=== PATIENT | male | born 1940 | race Caucasian/White ===

== ENCOUNTER 2017-01-26 08:28 | Emergency (ER) | payer OTHER, MEDICARE ==
[2017-01-26 08:35] VITALS: BP 153/94; PULSE 79; TEMP 98.1; BMI 28.4
--- NOTE | 2017-01-26 09:07 | PDOC ---
History of Present Illness - General Chief Complaint: Injury Stated Complaint: FALL Time Seen by Provider: 01/26/17 08:45 - History of Present Illness Initial Comments: 01/26/17 09:00 Chief complaint: Left hand injury History of present illness: This morning the patient tripped and fell while exiting a [employer] train, falling forward onto his outstretched arms. He sustained an injury to his left palm which consists of a laceration and bleeding. Review of systems: He denies pain or injury to the head neck chest abdomen spine or other extremities. He denies distal numbness tingling or limited motion of the hand or digits on the affected side. He denies visual or focal neurologic symptoms, dizziness, lightheadedness, unsteadiness of gait. He denies chest pain, shortness of breath, abdominal pain, nausea, vomiting, diarrhea, diaphoresis, urinary tract symptoms. Past medical history: Status post ablation for atrial fibrillation 2 years ago, with no subsequent recurrence, has been maintained in sinus rhythm, but continues to take warfarin as a "back up". He keeps careful track of his INR is , which are in the 2-3 range. He also takes losartan for high blood pressure and simvastatin for elevated cholesterol. No history of PR or known coronary disease. Social/family history reviewed and noncontributory Physical exam: Alert and oriented 3, well-developed well-nourished, no acute distress, cheerful and cooperative Afebrile, vital signs normal except for mildly elevated blood pressure of 153/94 Head atraumatic. No sign of abrasion laceration contusion and ecchymosis or hematoma PERRLA 4 mm, fundi benign with sharp disc margins and good central venous pulsations, ENT clear Neck without tenderness or deformity, good range of motion without pain Chest clear. Chest wall or rib cage tenderness or deformity. Full breath sounds throughout bilaterally CV S1 and S2 normal without murmur rub or gallop pulses full and symmetric no JVD or edema no bruits 80 and regular Abdomen soft nontender without mass or organomegaly No pelvis or spine deformity or tenderness No visible or palpable trauma to the extremities except for the left hand, where there is a deep flap-type laceration over the thenar eminence and the palm. There is no tenderness or deformity of the bones of the hand. There is good range of motion of all 5 digits. Including the thumb. There is no distal sensory or motor deficit present. Joint function is complete and extension and flexion against resistance. Capillary refill is intact. The flap was elevated and the laceration was visualized. It appears to be limited to the soft tissues without any deep penetration Impression: Hand laceration Plan: Thorough scrub and irrigation, suture repair, wound care instructions and follow-up. Past History - Past Medical History Allergies/Adverse Reactions: Allergies Allergy/AdvReac Type Severity Reaction Status Date / Time esomeprazole magnesium Allergy Verified 01/26/17 08:29 [From Nexium] Home Medications: Ambulatory Orders Losartan Potassium 50 mg PO BID 07/31/12 Warfarin Sodium [Coumadin] 5 mg PO DAILY 08/10/14 Simvastatin [Zocor] 10 mg PO HS 01/26/17 Cancer: Yes (PROSTATE) Cardiac Disorders: Yes (AFIB,) HTN: Yes Hypercholesterolemia: Yes - Surgical History Cardiac Surgery: Yes (ABLASION) - Psycho/Social/Smoking Cessation Hx Anxiety: No Suicidal Ideation: No Smoking Status: No Smoking History: Never smoked Years of Tobacco Use: 0 Number of Cigarettes Smoked Daily: 0 Hx Alcohol Use: Yes Drug/Substance Use Hx: No Substance Use Type: Alcohol *Physical Exam - Vital Signs Last Vital Signs Temp Pulse Resp BP Pulse Ox 98.1 F 79 16 153/94 96 01/26/17 08:29 01/26/17 08:29 01/26/17 08:29 01/26/17 08:29 01/26/17 08:29 Medical Decision Making - Medical Decision Making 01/26/17 10:06 Procedure note: Repair of laceration Flap-like laceration approximately 2 cm in length was prepped with Betadine. Local anesthesia with 1% lidocaine, with good result Wound scrubbed and thoroughly irrigated with normal saline, explored. Found to be superficial. No deep penetration or deep structures involved Hemostasis was obtained with gentle pressure, and wound edges were loosely approximated with 4-0 nylon interrupted sutures. Avoiding the skin edges of the flap. Bacitracin was applied and a bulky dressing was installed. Patient tolerated the procedure well. Tetanus was administered and he was discharged to follow-up fully ambulatory, in no pain or other distress in the company of his . *DC/Admit/Observation/Transfer Diagnosis at time of Disposition: Laceration of hand Qualifiers: Encounter type: initial encounter Laterality: left Qualified Code(s): S61.412A - Laceration without foreign body of left hand, initial encounter - Discharge Dispostion Disposition: HOME Condition at time of disposition: Improved Admit: No - Referrals Referrals: Elliott Tovar [Primary Care Provider] - 2 Days - Patient Instructions Printed Discharge Instructions: DI for Laceration Repair, How to Care for a Laceration After Repair Additional Instructions: Keep clean and dry until sutures are removed. Rest and elevate 24-48 hours to minimize swelling in chance of infection. Dressing changes and wound care as described. Recheck immediately if sign of infection. Otherwise suture removal in 10-14 days.
[2017-01-26] MEDS ORDERED: DIPHTH,PERTUSS(ACELL),TET 0.5 ML DISP.SYRIN IM ONE (09:51)
== END 2017-01-26 10:33 | disposition home or self-care (01) ==
LOC: FER 08:28
PROC: 0HQGXZZ Repair Left Hand Skin, External Approach (ICD-10-PCS; principal; 2017-01-26)
PROC: 3E0234Z Introduction of Serum, Toxoid and Vaccine into Muscle, Percutaneous Approach (ICD-10-PCS; 2017-01-26)
DX: S61.412A Laceration without foreign body of left hand, initial encounter (principal); W18.39XA Other fall on same level, initial encounter; Y93.89 Activity, other specified; Y92.522 Railway station as the place of occurrence of the external cause; I48.91 Unspecified atrial fibrillation; I10 Essential (primary) hypertension; E78.00 Pure hypercholesterolemia, unspecified; Z79.01 Long term (current) use of anticoagulants; Z85.46 Personal history of malignant neoplasm of prostate
CPT/HCPCS: 90715; 99282-25

== ENCOUNTER 2020-01-17 12:00 | Inpatient (IN) | payer OTHER, MEDICARE ==
[~2020-01-17 12:00] MED LIST: ALPRAZolam 0.25 MG TABLET PO PRN
--- NOTE | 2020-01-17 12:45 | PDOC ---
History of Present Illness - General Chief Complaint: Injury Stated Complaint: HIP PAIN Time Seen by Provider: 01/17/20 12:42 History Source: Patient, Family Exam Limitations: No Limitations - History of Present Illness Initial Comments: 79 year old male with PMH atrial fibrillation on Coumadin s/p ablation, RA, HTN , HLD, anxiety presented to ED after a fall today. Pt was recently discharged from [facility] last Monday, admitted for anxiety, had his Zoloft in the morning increased from 100 mg to 200 mg. Pt reported this AM while at home, he attempted to stand up from the stable, had the chair slip out from beneath him, and felt to the ground on the right side of his bottom. He denied head injury, neck pain, back pain, prodromal symptoms, chest pain, shortness of breath, palpitations, lightheadedness, LOC, vomiting. He reported his only complaint is mild right hip pain. He reported after the fall he was ambulatory, going up and down stairs without difficulty. He reported that he went to his outpatient psychiatrist this morning, who advised coming to ED for XR of pelvis/hip. He reported in the parking lot of [employer] he then fell towards the car while he was trying to get out, lightly falling down again on his bottom. He denied head injury, neck pain, back pain, prodromal symptoms, chest pain, shortness of breath, palpitations, lightheadedness, LOC, vomiting. Family at bedside reported they believe the patient's anxiety and new increased dose of Zoloft is the cause of his falling today. They reported he gets unsteady on his feet when he gets nervous, and he awoke this AM with increased anxiety. ROS General: denied fever, chills, generalized weakness. HEENT: denied sore throat, rhinorrhea, ear pain. Neck: denied neck pain. Cardiovascular: denied chest pain, palpitations, syncope, diaphoresis. Respiratory: denied shortness of breath, cough, sputum production, hemoptysis. Gastrointestinal: denied abdominal pain, nausea, vomiting, diarrhea, constipation, blood in stool. Genitourinary: denied dysuria, increased urinary frequency, hematuria, urinary incontinence, flank pain. Back: denied back pain. Musculoskeletal: admitted to right hip pain. denied joint swelling. Neurological: denied headache, dizziness, numbness, tingling, weakness. Integumentary: denied rash, laceration, abrasion. Hematologic/Lymphatic: denied bruising or bleeding Constitutional: Well-nourished, Well-developed, appearing stated age. Airway: intact Breathing: bilateral breath sounds Circulation: 2+ carotid pulse B/L HEENT: head is normocephalic, atraumatic. No facial bones tenderness to palpation. No gonzales sign. No raccoon eyes. EOMI. PERRLA. Neck: supple. Full ROM. no midline c-spine tenderness to palpation. No step offs. Cardiovascular: regular heart rhythm. no murmurs. no pericardial friction rub. Chest wall: No tenderness to palpation of anterior chest wall. No deformity to anterior chest wall. Respiratory: clear to auscultation bilaterally. no crackles, rhonchi or wheezing. no stridor. Gastrointestinal: soft, nontender. normal bowel sounds. no rebound, guarding, masses. No ecchymoses. Back: no midline T-spine or L-spine tenderness to palpation. No step offs. no bruising to back. Pelvis: lower extremities equal in length without external rotation. No hip tenderness to palpation. Extremities: peripheral pulses intact. no lower extremity edema. Neurological: CN 2-12 grossly intact. moves all four extremities. Psych: awake, alert, oriented x3. follows commands. answers questions appropriately. Past History - Past Medical History Allergies/Adverse Reactions: Allergies Allergy/AdvReac Type Severity Reaction Status Date / Time esomeprazole magnesium Allergy Unknown Verified 01/17/20 12:41 [From Nexium] Home Medications: Ambulatory Orders Warfarin Sodium [Coumadin] 5 mg PO HS 08/10/14 Cholecalciferol (Vitamin D3) [Vitamin D3 -] 1,000 unit PO DAILY 01/17/20 Docusate Sodium [Docusate 100 mg] 100 mg PO BID 01/17/20 Hydroxychloroquine Sulfate [Plaquenil] 200 mg PO BID 01/17/20 Losartan Potassium [Cozaar] 25 mg PO BID 01/17/20 Mirtazapine [Remeron -] 15 mg PO HS 01/17/20 Mv-Mins/Folic/Lycopene/Ginkgo [One Daily Men's 50+ Tablet] 1 each PO DAILY 01/17 Sertraline HCl [Zoloft] 200 mg PO DAILY 01/17/20 - Immunization History TDAP Vaccination: Yes (01/26/2017) - Psycho Social/Smoking Cessation Hx Smoking Status: No Smoking History: Never smoked Years of Tobacco Use: 0 Number of Cigarettes Smoked Daily: 0 Hx Alcohol Use: No Drug/Substance Use Hx: No Substance Use Type: None *Physical Exam - Vital Signs Last Vital Signs Temp Pulse Resp BP Pulse Ox 98.1 F 70 18 140/70 96 01/17/20 12:10 01/17/20 12:10 01/17/20 12:10 01/17/20 12:10 01/17/20 12:10 ED Treatment Course - LABORATORY CBC & Chemistry Diagram: 01/17/20 13:30 01/17/20 13:30 - RADIOLOGY Radiology Studies Ordered: Category Date Time Status CHEST X-RAY PORTABLE* [RAD] Stat Radiology 01/17/20 12:21 Ordered HIP & PELVIS-RIGHT [RAD] Urgent Radiology 01/17/20 12:16 Ordered Medical Decision Making - Medical Decision Making 79 year old male with above PMH presented to ED for right hip pain after two mechanical falls today. Initial Vital Signs Temp Pulse Resp BP Pulse Ox 98.1 F 70 18 140/70 96 01/17/20 12:10 01/17/20 12:10 01/17/20 12:10 01/17/20 12:10 01/17/20 12:10 Afebrile. No tachycardia. No tachypnea. Mild hypertension. No hypoxia on room air. Labs ordered: UA Imaging ordered: CXR, right hip XR, pelvis XR Medications ordered: none Pt refused pain medication EKG performed at 1307: rate 78, regular rhythm, normal axis, normal intervals, no acute ST changes. 01/17/20 13:10 CXR report: Name: [facility] S[facility]ENT DEPARTMENT OF RADIOLOGY Phys: Nadege Hameed RESIDENT : 1940 Age: 79 Sex: M [facility] Acct: [id number] Loc: [address] Exam Date: 01/17/20 Status: REG [place] [id number] Unit Number: [id number] EXAM #: TYPE/EXAM: RESULT: [id number] RAD/CHEST X-RAY PORTABLE* Chest: Fall. Pain. A single view of the chest reveals grossly intact bones and soft tissues, scoliosis, weak inspiration, prominent heart, unfolded aorta and normal noemi. There is no sign of infiltrate or failure. A pneumothorax, pleural fluid or atelectasis is not seen. Correlation recommended. If symptoms persist, further imaging may be of help. Reported By: Devante Rodney MD 01/17/20 1253 Right hip/pelvis XR report: Name: [facility]AH SARGENT DEPARTMENT OF RADIOLOGY Phys: Nadege Hameed RESIDENT : 1940 Age: 79 Sex: M [facility] Acct: [id number] Loc: [address] Exam Date: 01/17/20 Status : [place] [address] Unit Number: [id number] EXAM#: TYPE/EXAM: RESULT: [id number] RAD/HIP PELVIS-RIGHT ADDENDUM ADDENDUM #1 There are right gonadal clips. * ORIGINAL REPORT Pelvis and right hip: Fall. Right hip pain. 2 views of the pelvis and 2 views of the right hip for a total of 4 images reveal what appears to be an impaction fracture of the right femoral neck. The other bones are intact. There is evidence of extensive abdominal surgery. There is retained stool. There are degenerative changes. Correlation recommended. Impression: Findings suggestive of impaction fracture right hip. Correlation recommended. CT is suggested. Reported By: Devante Rodney MD 01/17/20 1256 Pelvis and right hip: Fall. Right hip pain. 2 views of the pelvis and 2 views of the right hip for a total of 4 images reveal what appears to be an impaction fracture of the right femoral neck. The other bones are intact. There is evidence of extensive abdominal surgery. There is retained stool. There are degenerative changes. Correlation recommended. Impression: Findings suggestive of impaction fracture right hip. Correlation recommended. CT is suggested. Reported By: Devante Rodney MD 01/17/20 1255 Pt has acute right femoral impacted fracture. Pt and family made aware, Dr. Francisco Javier bell. Labs ordered: CBC, CMP, PT/PTT/INR, T&S Last ate 1/2 muffin at 1200 today Prior ate croissant and pound cake around 0900 today 01/17/20 13:[address] Mcintyre's PA. Pt to be NPO after midnight, will follow INR. 01/17/20 14:28 Laboratory Last Values WBC 11.0 K/mm3 (4.0-10.8) H 01/17/20 13:30 RBC 3.94 M/mm3 (4.00-5.60) L 01/17/20 13:30 Hgb 12.4 GM/dl (11.7-16.9) 01/17/20 13:30 Hct 37.1 % (35.4-49) 01/17/20 13:30 MCV 94.1 fl (80-96) 01/17/20 13:30 MCH 31.5 pg (25.7-33.7) 01/17/20 13:30 MCHC 33.5 g/dl (32.0-35.9) 01/17/20 13:30 RDW 13.9 % (11.9-15.9) 01/17/20 13:30 Plt Count 164 K/MM3 (134-434) 01/17/20 13:30 MPV 7.3 fl (7.5-11.1) L 01/17/20 13:30 Absolute Neuts (auto) 10.1 K/mm3 01/17/20 13:30 Neutrophils % No Result Required. 01/17/20 13:30 Neutrophils % (Manual) 90.0 % (42.8-82.8) H 01/17/20 13:30 Lymphocytes % No Result Required. 01/17/20 13:30 Lymphocytes % (Manual) 2.0 % (8-40) L 01/17/20 13:30 Monocytes % (Manual) 8 % (3.8-10.2) 01/17/20 13:30 Platelet Estimate Adequate 01/17/20 13:30 PT with INR 13.2 SEC (10.2-13.0) H 01/17/20 13:30 INR 1.18 (0.82-1.09) 01/17/20 13:30 PTT (Actin FS) 29.5 SECONDS (25.2-36.5) 01/17/20 13:30 Sodium 135 mmol/L (136-145) L 01/17/20 13:30 Potassium 4.5 mmol/L (3.5-5.1) 01/17/20 13:30 Chloride 108 mmol/L (98-107) H 01/17/20 13:30 Carbon Dioxide 23 mmol/L (21-32) 01/17/20 13:30 Anion Gap 4 MMOL/L (8-16) L 01/17/20 13:30 BUN 31.0 mg/dl (7-18) H 01/17/20 13:30 Creatinine 1.5 mg/dl (0.55-1.3) H 01/17/20 13:30 Est GFR (CKD-EPI)AfAm 50.24 01/17/20 13:30 Est GFR (CKD-EPI)NonAf 43.35 01/17/20 13:30 Random Glucose 158 mg/dl (74-106) H 01/17/20 13:30 Calcium 8.4 mg/dl (8.5-10) L 01/17/20 13:30 Total Bilirubin 0.5 mg/dl (0.2-1) 01/17/20 13:30 AST 44 U/L (15-37) H 01/17/20 13:30 ALT 65 U/L (13-61) H 01/17/20 13:30 Alkaline Phosphatase 82 U/L (45-117) 01/17/20 13:30 Total Protein 6.3 g/dl (6.4-8.2) L 01/17/20 13:30 Albumin 3.6 g/dl (3.4-5.0) 01/17/20 13:30 01/17/20 14:44 Spoke with Ortho PA, pt to be evaluated by ortho tomorrow. NPO after midnight. 01/17/20 15:[address] Rivas Discharge - Discharge Information Problems reviewed: Yes Clinical Impression/Diagnosis: Femoral neck fracture Condition: Guarded - Admission Yes - Follow up/Referral Referrals: Elliott Tovar [Primary Care Provider] - - Patient Discharge Instructions - Post Discharge Activity
--- NOTE | 2020-01-17 12:47 | PDOC ---
Attending Attestation - Resident Resident Name: Nadege Hameed - ED Attending Attestation I have performed the following: I have examined & evaluated the patient, The case was reviewed & discussed with the resident, I agree w/resident's findings & plan, Exceptions are as noted - HPI HPI: 79 yo M history afib on coumadin, RA, HTN, HL, anxiety presents s/p falls x2. He states he had a mechanical fall this morning while attempting to stand up. Denies any preceding symptoms. He came to the ED at the behest of his psychiatrist. On arrival to the ED, he slid as he was exiting the car, landing on his buttocks. He c/o R buttock pain. Denies weakness, numbness. No LOC, no BLANTON , no N/V. Pain localizes to R buttock/pelvis, worse with ROM of the R hip. - Physicial Exam PE: GENERAL: Awake, alert, and fully oriented, in no acute distress. Mildly anxious HEAD: No signs of trauma EYES: PERRLA, EOMI, sclera anicteric, conjunctiva clear ENT: Auricles normal inspection, hearing grossly normal, nares patent, oropharynx clear without exudates. Moist mucosa NECK: Normal ROM, supple, no lymphadenopathy, JVD, or masses LUNGS: Breath sounds equal, clear to auscultation bilaterally. No wheezes, and no crackles HEART: Regular rate and rhythm, normal S1 and S2, no murmurs, rubs or gallops ABDOMEN: Soft, nontender, normoactive bowel sounds. No guarding, no rebound. No masses EXTREMITIES: R hip with limited ROM secondary to pain. +Tenderness to the area of the R inferior pubic ramus. Distal pulses intact. Remainder of extremities with normal range of motion, no edema. No clubbing or cyanosis. No cords, erythema, or tenderness NEUROLOGICAL: Cranial nerves II through XII grossly intact. Normal speech. Motor and sensation intact. Gait not tested due to nature of complaint SKIN: Warm, dry, normal turgor, no rashes or lesions noted. - Medical Decision Making Pt with R hip/pelvis pain secondary to fall. Found to have R femoral neck fx. Will obtain EKG, labs, UA. Admit.
[2020-01-17 14:00] LABS: HEMATOCRIT 37.1 % (35.4-49); HEMOGLOBIN 12.4 GM/dl (11.7-16.9); MCH 31.5 pg (25.7-33.7); MCHC 33.5 g/dl (32.0-35.9); MEAN CELL VOLUME 94.1 fl (80-96); MEAN PLT VOLUME 7.3 fl (7.5-11.1); PLATELET COUNT 164 K/MM3 (134-434); RBC 3.94 M/mm3 (4.00-5.60); RDW 13.9 % (11.9-15.9)
[2020-01-17 14:05] LABS: ALBUMIN 3.6 g/dl (3.4-5.0); BILIRUBIN,TOTAL 0.5 mg/dl (0.2-1); CALCIUM 8.4 mg/dl (8.5-10); CREATININE 1.5 mg/dl (0.55-1.3); POTASSIUM 4.5 mmol/L (3.5-5.1); TOT PROT 6.3 g/dl (6.4-8.2)
[2020-01-17] MEDS ORDERED: SODIUM CHLORIDE 500 ML IV STA (14:08)
[2020-01-17 14:15] LABS: INR 1.18 (0.82-1.09); PROTHROMBIN TIME (PATIENT) 13.2 SEC (10.2-13.0)
[2020-01-17 14:17] LABS: PLATELET ESTIMATE ADEQUATE
--- NOTE | 2020-01-17 16:26 | CON.CARD ---
Cardiology Consult (text) - Consultation Consultation Note: cc: fall hpi: 79 m hx afib (s/p ablation approx 6 yrs ago), htn, hld, anxiety here s/p fall. Pt had mechanical fall at home (chair slipped and he fell), no prodrome sxs, no cp sob palps dizzy loc pnd orthopnea le edema. After fall had right hip pain. Came to er and found to have hip fx. pmh: per hpi psh: afib ablation social: no tob fam: no premature cad ros: per hpi; all others nl meds: Home Medications Medication Instructions Recorded Warfarin Sodium [Coumadin] 5 mg PO HS 08/10/14 Cholecalciferol (Vitamin D3) 1,000 unit PO DAILY 01/17/20 [Vitamin D3 -] Docusate Sodium [Docusate 100 mg] 100 mg PO BID 01/17/20 Hydroxychloroquine Sulfate 200 mg PO BID 01/17/20 [Plaquenil] Losartan Potassium [Cozaar] 25 mg PO BID 01/17/20 Mirtazapine [Remeron -] 15 mg PO HS 01/17/20 Mv-Mins/Folic/Lycopene/Ginkgo [One 1 each PO DAILY 01/17/20 Daily Men's 50+ Tablet] Sertraline HCl [Zoloft] 200 mg PO DAILY 01/17/20 pe: Vital Signs Period Temp Pulse Resp BP Sys/Saunders Pulse Ox Last 24 Hr 98.1 F-99.9 F 70-74 16-18 119-140/70-74 95-96 nad no jvd rrr s1s2 no mrg cta bl nl eff aao3 no le e/c/c abd nt nd pos bs no jaundice diaphoresis pos dp pt no carotid bruits Laboratory Last Values WBC 11.0 K/mm3 (4.0-10.8) H 01/17/20 13:30 RBC 3.94 M/mm3 (4.00-5.60) L 01/17/20 13:30 Hgb 12.4 GM/dl (11.7-16.9) 01/17/20 13:30 Hct 37.1 % (35.4-49) 01/17/20 13:30 MCV 94.1 fl (80-96) 01/17/20 13:30 MCH 31.5 pg (25.7-33.7) 01/17/20 13:30 MCHC 33.5 g/dl (32.0-35.9) 01/17/20 13:30 RDW 13.9 % (11.9-15.9) 01/17/20 13:30 Plt Count 164 K/MM3 (134-434) 01/17/20 13:30 MPV 7.3 fl (7.5-11.1) L 01/17/20 13:30 Absolute Neuts (auto) 10.1 K/mm3 01/17/20 13:30 Neutrophils % No Result Required. 01/17/20 13:30 Neutrophils % (Manual) 90.0 % (42.8-82.8) H 01/17/20 13:30 Lymphocytes % No Result Required. 01/17/20 13:30 Lymphocytes % (Manual) 2.0 % (8-40) L 01/17/20 13:30 Monocytes % (Manual) 8 % (3.8-10.2) 01/17/20 13:30 Platelet Estimate Adequate 01/17/20 13:30 PT with INR 13.2 SEC (10.2-13.0) H 01/17/20 13:30 INR 1.18 (0.82-1.09) 01/17/20 13:30 PTT (Actin FS) 29.5 SECONDS (25.2-36.5) 01/17/20 13:30 Sodium 135 mmol/L (136-145) L 01/17/20 13:30 Potassium 4.5 mmol/L (3.5-5.1) 01/17/20 13:30 Chloride 108 mmol/L (98-107) H 01/17/20 13:30 Carbon Dioxide 23 mmol/L (21-32) 01/17/20 13:30 Anion Gap 4 MMOL/L (8-16) L 01/17/20 13:30 BUN 31.0 mg/dl (7-18) H 01/17/20 13:30 Creatinine 1.5 mg/dl (0.55-1.3) H 01/17/20 13:30 Est GFR (CKD-EPI)AfAm 50.24 01/17/20 13:30 Est GFR (CKD-EPI)NonAf 43.35 01/17/20 13:30 Random Glucose 158 mg/dl (74-106) H 01/17/20 13:30 Calcium 8.4 mg/dl (8.5-10) L 01/17/20 13:30 Total Bilirubin 0.5 mg/dl (0.2-1) 01/17/20 13:30 AST 44 U/L (15-37) H 01/17/20 13:30 ALT 65 U/L (13-61) H 01/17/20 13:30 Alkaline Phosphatase 82 U/L (45-117) 01/17/20 13:30 Total Protein 6.3 g/dl (6.4-8.2) L 01/17/20 13:30 Albumin 3.6 g/dl (3.4-5.0) 01/17/20 13:30 Blood Type O POSITIVE 01/17/20 13:40 ecg: sr nl intervals no ischemic changes cxr: clear lungs a/p: 79 m hx afib (s/p ablation), htn, hld, here s/p fall. fall, hip fracture: -mechanical fall, no suggestion of cardiac etiology -no cardiac contraindications (low-intermediate risk) to hip surgery afib s/p ablation: -in sr here -on coumadin at home, INR subtherapeutic here. would star hep gtt or lovenox if no immediate plans for hip surgery htn: -cont home arb hld: -cont home statin
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
[2020-01-17] MEDS ORDERED: SODIUM CHLORIDE 0.9% 1000 ML INFUS.BAG IV ONE (17:39)
[2020-01-17] MEDS ORDERED: ACETAMINOPHEN 325 MG TABLET (FP) PO PRN (17:44)
[2020-01-17] MEDS ORDERED: SODIUM CHLORIDE 1,000 ML IV SCH (17:45)
[2020-01-17] MEDS ORDERED: BACITRACIN 15 GM TUBE TOPICAL OINTMENT TP SCH (17:45)
[2020-01-17] MEDS ORDERED: SILVER SULFADIAZINE 1% TOP CREAM 50 GM JAR TP SCH (17:45)
[2020-01-17] MEDS ORDERED: ALPRAZolam 1 MG TABLET PO PRN (18:01)
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
[2020-01-17 18:23] VITALS: BMI 25.5
[2020-01-17] MEDS ORDERED: ALPRAZolam 0.25 MG TABLET PO PRN (18:32)
[2020-01-17] MEDS: HEPARIN NA (PORCINE) 5,000 UNITS/ML 1ML VIAL SQ SCH (21:35)
[2020-01-17] MEDS ORDERED: SENNOSIDES 8.6MG TABLET (FP) PO SCH (22:00)
[2020-01-17] MEDS ORDERED: DOCUSATE SODIUM 100 MG CAPSULE (FP) PO SCH (22:00)
[2020-01-17] MEDS ORDERED: MIRTAZAPINE 15 MG TABLET (FP) PO SCH (22:00)
[2020-01-17] MEDS ORDERED: HYDROXYCHLOROQUINE SO4 200 MG TABLET (FP) PO SCH (22:00)
[2020-01-17 22:26] LABS: COCAINE, UR NEGATIVE ng/ml (CUTOFF=300); METHADONE, UR NEGATIVE ng/ml (CUTOFF=300); OPIATES, URI NEGATIVE ng/ml (CUTOFF=300); PHENCYCLIDINE,URINE NEGATIVE ng/ml (CUTOFF=25); URINE AMPHETAMINES NEGATIVE ng/ml (CUTOFF=500); URINE BARBITURATES NEGATIVE ng/ml (CUTOFF=200); URINE BENZODIAZEPINES NEGATIVE ng/ml (CUTOFF=200)
[2020-01-18] MEDS: HEPARIN NA (PORCINE) 5,000 UNITS/ML 1ML VIAL SQ SCH ×3 (06:43→21:39)
[2020-01-18] MEDS ORDERED: SERTRALINE HCL 50 MG TABLET (FP) PO SCH ×2 (07:00→10:00)
[2020-01-18] MEDS ORDERED: SILVER SULFADIAZINE 1% TOP CREAM 50 GM JAR TP SCH (07:00)
[2020-01-18] MEDS ORDERED: LOSARTAN POTASSIUM 25 MG TABLET PO SCH ×2 (07:00→10:00)
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
[2020-01-18 08:40] LABS: BASO % 0.5 % (0-2.0); EOS % 1.9 % (0-4.5); HEMATOCRIT 32.8 % (35.4-49); HEMOGLOBIN 11.1 GM/dl (11.7-16.9); LYMPH % 9.2 % (8-40); MCHC 33.8 g/dl (32.0-35.9); MEAN CELL VOLUME 94.6 fl (80-96); MEAN PLT VOLUME 7.5 fl (7.5-11.1); MONO % 10.7 % (3.8-10.2); NEUT % 77.7 % (42.8-82.8); PLATELET COUNT 130 K/MM3 (134-434); RBC 3.47 M/mm3 (4.00-5.60); RDW 13.9 % (11.9-15.9); WHITE BLOOD COUNT 6.1 K/mm3 (4.0-10.8)
[2020-01-18 08:54] LABS: BILIRUBIN,TOTAL 0.9 mg/dl (0.2-1); CHOLESTEROL 95 mg/dl (50-200); CREATININE 1.2 mg/dl (0.55-1.3); HDL CHOLESTEROL 41 mg/dl (40-60); LDL CHOLESTEROL (ONLY DFH) 46 mg/dl (5-100); POTASSIUM 4.6 mmol/L (3.5-5.1); TOT PROT 5.6 g/dl (6.4-8.2); TRIGLYCERIDES 38 mg/dl (0-150)
[2020-01-18] MEDS ORDERED: POLYETHYLENE GLYCOL 3350 119 GM BTL PO SCH (10:00)
[2020-01-18] MEDS: HYDROXYCHLOROQUINE SO4 200 MG TABLET (FP) PO SCH ×2 (10:35→20:13)
--- NOTE | 2020-01-18 10:35 | EKG ---
Test Reason : Blood Pressure : / mmHG Vent. Rate : 078 BPM Atrial Rate : 078 BPM P-R Int : 170 ms QRS Dur : 094 ms QT Int : 374 ms P-R-T Axes : 038 -08 016 degrees QTc Int : 426 ms NORMAL SINUS RHYTHM NORMAL ECG NO PREVIOUS ECGS AVAILABLE Confirmed by TATIANA DAN MD ([id number]) on 01/18/2020 10:35:13 AM Referred By: Confirmed By:TATIANA DAN MD
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
[2020-01-18] MEDS ORDERED: HYDROXYCHLOROQUINE SO4 200 MG TABLET (FP) PO SCH (19:00)
[2020-01-18] MEDS ORDERED: ALPRAZolam 0.25 MG TABLET PO PRN (19:21)
[2020-01-18] MEDS ORDERED: ACETAMINOPHEN 325 MG TABLET (FP) PO PRN ×2 (19:21→19:34)
[2020-01-18] MEDS ORDERED: oxyCODONE HCL 5 MG TABLET PO PRN (19:34)
[2020-01-18] MEDS ORDERED: DOCUSATE SODIUM 100 MG CAPSULE (FP) PO SCH (22:00)
[2020-01-18] MEDS ORDERED: MIRTAZAPINE 15 MG TABLET (FP) PO SCH (22:00)
[2020-01-18] MEDS ORDERED: SENNOSIDES 8.6MG TABLET (FP) PO SCH (22:00)
--- NOTE | 2020-01-18 23:39 | PN ---
Progress Note (short form) - Note Progress Note: Problems 1. CKD vs MEENU with unclear baseline 2. renal cyst per pt 3. a-fib 4. hip fracture 5. anxiety 6. htn 7. transaminitis Active Medications Acetaminophen (Tylenol -) 650 mg PO Q4H PRN PRN Reason: PAIN LEVEL 4 - 6 Acetaminophen (Tylenol -) 325 mg PO Q6H PRN PRN Reason: PAIN SCALE 6 - 10 Alprazolam (Xanax -) 0.25 mg PO 0700,1900 PRN PRN Reason: ANXIETY Docusate Sodium (Colace -) 100 mg PO HS [facility] Last Admin: 01/18/20 21:38 Dose: 100 mg Heparin Sodium (Porcine) (Heparin -) 5,000 unit SQ TID [facility] Last Admin: 01/18/20 21:39 Dose: 5,000 unit Hydroxychloroquine Sulfate (Plaquenil -) 200 mg PO 0700,1900 [facility] Losartan Potassium (Cozaar -) 25 mg PO 0700 [facility] Mirtazapine (Remeron -) 15 mg PO [facility] Last Admin: 01/18/20 21:38 Dose: 15 mg Oxycodone HCl (Roxicodone -) 5 mg PO Q6H PRN PRN Reason: PAIN SCALE Polyethylene Glycol (Miralax (For Daily Use) -) 17 gm PO DAILY [facility] Senna (Senna -) 1 tab PO [facility] Last Admin: 01/18/20 21:39 Dose: 1 tab Sertraline HCl (Zoloft -) 200 mg PO 0700 [facility] Silver Sulfadiazine (Silvadene -) 1 applic TP 0700 [facility] Last Vital Signs Temp Pulse Resp BP Pulse Ox 97.9 F 84 18 125/56 L 97 01/18/20 18:20 01/18/20 18:20 01/18/20 21:00 01/18/20 18:20 01/18/20 21:00 CBC, BMP 01/18/20 07:25 01/18/20 07:25 Plan - will give fluid challenge - repeat labs in am - obtain outpt records - check ua - monitor bp - monitor ast and alt
[2020-01-19] MEDS ORDERED: PT OWN MED DRAWER 7, Y5N ONE (03:07)
[2020-01-19] MEDS: HEPARIN NA (PORCINE) 5,000 UNITS/ML 1ML VIAL SQ SCH (05:46)
[2020-01-19] MEDS ORDERED: SERTRALINE HCL 50 MG TABLET (FP) PO SCH (07:00)
[2020-01-19] MEDS ORDERED: LOSARTAN POTASSIUM 25 MG TABLET PO SCH (07:00)
[2020-01-19] MEDS ORDERED: SILVER SULFADIAZINE 1% TOP CREAM 50 GM JAR TP SCH (07:00)
[2020-01-19] MEDS ORDERED: HYDROXYCHLOROQUINE SO4 200 MG TABLET (FP) PO SCH (07:00)
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
[2020-01-19 08:53] LABS: BASO % 0.3 % (0-2.0); EOS % 2.4 % (0-4.5); HEMATOCRIT 33.9 % (35.4-49); HEMOGLOBIN 11.5 GM/dL (11.7-16.9); LYMPH % 10.6 % (8-40); MCH 31.9 pg (25.7-33.7); MCHC 33.9 g/dl (32.0-35.9); MEAN CELL VOLUME 94.1 fl (80-96); MEAN PLT VOLUME 7.4 fl (7.5-11.1); NEUT % 75.7 % (42.8-82.8); PLATELET COUNT 129 K/MM3 (134-434); RDW 14.8 % (11.9-15.9)
[2020-01-19] MEDS ORDERED: PROPOFOL 20 ML ONE ×4 (09:02→09:03)
[2020-01-19 09:22] LABS: BLOOD UREA NITROGEN 24.1 mg/dL (7-18); CALCIUM 8.5 mg/dL (8.5-10.1); CREATININE 1.3 mg/dL (0.55-1.3); POTASSIUM 4.5 mmol/L (3.5-5.1)
[2020-01-19] MEDS ORDERED: ceFAZolin SODIUM 1 GM VIAL IVPB ONE (09:37)
[2020-01-19] MEDS ORDERED: ASPIRIN 325 MG TABLET PO SCH (10:00)
[2020-01-19] MEDS ORDERED: POLYETHYLENE GLYCOL 3350 119 GM BTL PO SCH (10:00)
--- NOTE | 2020-01-19 10:00 | OP ---
Operative Note - Note: Operative Date: 01/19/20 ([facility]) Pre-Operative Diagnosis: right femoral neck fx Operation: right hip cannulated screws Post-Operative Diagnosis: Same as Pre-op Surgeon: Pasquale Mcintyre Anesthesia: General
[2020-01-19] MEDS ORDERED: oxyCODONE HCL 5 MG TABLET PO PRN (10:01)
[2020-01-19] MEDS ORDERED: ACETAMINOPHEN 325 MG TABLET (FP) PO PRN (10:01)
--- NOTE | 2020-01-19 16:18 | OP ---
DATE OF OPERATION: 01/19/2020 PREOPERATIVE DIAGNOSIS: Impacted right femoral neck fracture. POSTOPERATIVE DIAGNOSIS: Impacted right femoral neck fracture. PROCEDURE: Cannulated screws, right femoral neck fracture. SURGICAL ATTENDING: Pasquale Mcintyre MD ANESTHESIA: Spinal. CLOSURE: A cannulated screw set from [employer] ASO with two 6.5 and one 8.0 screw of appropriate size, 2-0 for subcutaneous, Steri-Strips for the skin. ESTIMATED BLOOD LOSS: Negligible. COMPLICATIONS: None. CONDITION TO RECOVERY ROOM: Stable condition. DESCRIPTION OF OPERATIVE PROCEDURE: The patient was taken to the operating room on January 19, 2020. Spinal anesthesia was administered by the anesthesiologist. IV Kefzol administered prophylactically prior to the case. The patient was fastened to the fracture table with all prominences well padded. Excellent position was confirmed in the AP and lateral plane by using the image intensifier. Right hip area was prepped and draped in the usual sterile fashion using a shower curtain. A 1-inch lateral incision was made over the lateral thigh at level of approximately lesser trochanter. Incision was carried through the fascia. Periosteal elevator was used to clear off the periosteum . Three guidewires from the cannulated screw set were drilled in a parallel fashion with an L formation, 2 posterior, 1 anterior, from the lateral aspect of the femoral neck, through the neck into the femoral head. Proper placement confirmed in AP and lateral plane using image intensifier. These wires were measured for length and then screwed with the appropriate length screws. The inferior posterior one was an 8.0 screw. The other 2 were 6.5 screws. Excellent fixation was obtained. Traction was removed and the screws were cinched tight and snug down to bone, reducing the fracture. Wires were pulled. X-rays [id number] revealed no penetration into the hip joint and excellent reduction. The hip was irrigated. The subcutaneous was closed with 2-0 Vicryl, Steri-Strips for the skin, followed by an Aquacel dressing. The patient was awakened from anesthesia and transferred to the recovery room in stable condition, no complications. Estimated blood loss negligible. Andrea [id number]
[2020-01-19] MEDS: ACETAMINOPHEN 325 MG TABLET (FP) PO PRN (16:44)
[2020-01-19] MEDS ORDERED: CEFAZOLIN 2 GM/D5W 2 GM/50 ML ML IVPB SCH (17:00)
[2020-01-19] MEDS: HYDROXYCHLOROQUINE SO4 200 MG TABLET (FP) PO SCH (18:00)
[2020-01-19] MEDS: CEFAZOLIN 2 GM/D5W 2 GM/50 ML ML IVPB SCH ×2 (18:01→19:43)
--- NOTE | 2020-01-19 18:12 | PN ---
Progress Note (short form) - Note Progress Note: Problems 1. CKD vs MEENU with unclear baseline 2. renal cyst per pt 3. a-fib 4. hip fracture 5. anxiety 6. htn 7. transaminitis Current Medications Acetaminophen (Tylenol -) 650 mg PO Q4H PRN PRN Reason: PAIN LEVEL 4 - 6 Last Admin: 01/19/20 16:44 Dose: 650 mg Acetaminophen (Tylenol -) 325 mg PO Q6H PRN PRN Reason: PAIN SCALE 6 - 10 Alprazolam (Xanax -) 0.25 mg PO 0700,1900 PRN PRN Reason: ANXIETY Docusate Sodium (Colace -) 100 mg PO HS [facility] Hydroxychloroquine Sulfate (Plaquenil -) 200 mg PO 0700,1900 [facility] Cefazolin Sodium/Dextrose (Ancef 2 Gm Premixed Ivpb -) 2 gm in 50 mls @ 200 mls /hr IVPB Q8H-IV [facility] Stop: 01/19/20 18:14 Losartan Potassium (Cozaar -) 25 mg PO 0700 [facility] Mirtazapine (Remeron -) 15 mg PO HS [facility] Oxycodone HCl (Roxicodone -) 5 mg PO Q6H PRN PRN Reason: PAIN LEVEL 6-10 Polyethylene Glycol (Miralax (For Daily Use) -) 17 gm PO DAILY [facility] Senna (Senna -) 1 tab PO HS [facility] Sertraline HCl (Zoloft -) 200 mg PO 0700 [facility] Silver Sulfadiazine (Silvadene -) 1 applic TP 0700 [facility] Warfarin Sodium (Coumadin -) 5 mg PO DAILY@1800 [facility] Last Vital Signs Temp Pulse Resp BP Pulse Ox 100 F H 63 18 130/75 100 01/19/20 18:00 01/19/20 18:00 01/19/20 18:00 01/19/20 18:00 01/19/20 11:36 Lungs clear Heart reg Abd soft notender Ext no edema CBC, BMP 01/19/20 08:08 01/19/20 08:08 CBC, BMP 01/18/20 07:25 01/18/20 07:25 Plan continue to monitor labs
[2020-01-19] MEDS: WARFARIN NA 5 MG TABLET (UD) PO SCH (19:44)
[2020-01-19] MEDS ORDERED: WARFARIN NA 5 MG TABLET (UD) PO SCH (20:00)
[2020-01-19] MEDS: POLYETHYLENE GLYCOL 3350 119 GM BTL PO SCH (21:19)
[2020-01-19] MEDS: MIRTAZAPINE 15 MG TABLET (FP) PO SCH (21:20)
[2020-01-19] MEDS: DOCUSATE SODIUM 100 MG CAPSULE (FP) PO SCH (21:20)
[2020-01-19] MEDS: SENNOSIDES 8.6MG TABLET (FP) PO SCH (21:20)
[2020-01-19] MEDS ORDERED: DOCUSATE SODIUM 100 MG CAPSULE (FP) PO ONE (22:00)
[2020-01-20] MEDS ORDERED: CEFAZOLIN 2 GM/D5W 2 GM/50 ML ML IVPB ONE (02:00)
[2020-01-20] MEDS: SERTRALINE HCL 50 MG TABLET (FP) PO SCH (06:29)
[2020-01-20] MEDS: LOSARTAN POTASSIUM 25 MG TABLET PO SCH (06:29)
[2020-01-20] MEDS: HYDROXYCHLOROQUINE SO4 200 MG TABLET (FP) PO SCH ×2 (06:30→18:06)
[2020-01-20] MEDS: SILVER SULFADIAZINE 1% TOP CREAM 50 GM JAR TP SCH (06:36)
--- NOTE | 2020-01-20 07:54 | PN ---
Progress Note (short form) - Note Progress Note: Ortho Pt seen and examined s/p right hip cannulated screws pod #1 Selected Entries 01/20/20 07:31 Temperature 98.4 F Pulse Rate 75 Respiratory 20 Rate Blood Pressure 124/68 Laboratory Tests 01/19/20 08:08 WBC 5.0 Hgb 11.5 L Hct 33.9 L Plt Count 129 L dressing c/d/i, calf soft, nt nvi a/p PT dvt ppx pain control d/c planning
--- NOTE | 2020-01-20 08:03 | PN ---
Progress Note, Physician Chief Complaint: s/p cannulated screw right hip History of Present Illness: post op day one done under spinal anesthesia - Current Medication List Current Medications: Active Medications Acetaminophen (Tylenol -) 650 mg PO Q4H PRN PRN Reason: PAIN LEVEL 4 - 6 Last Admin: 01/19/20 16:44 Dose: 650 mg Acetaminophen (Tylenol -) 325 mg PO Q6H PRN PRN Reason: PAIN SCALE 6 - 10 Alprazolam (Xanax -) 0.25 mg PO 0700,1900 PRN PRN Reason: ANXIETY Docusate Sodium (Colace -) 100 mg PO [facility] Last Admin: 01/19/20 21:20 Dose: 100 mg Hydroxychloroquine Sulfate (Plaquenil -) 200 mg PO 0700,1900 [facility] Last Admin: 01/20/20 06:30 Dose: 200 mg Losartan Potassium (Cozaar -) 25 mg PO 0700 [facility] Last Admin: 01/20/20 06:29 Dose: 25 mg Mirtazapine (Remeron -) 15 mg PO [facility] Last Admin: 01/19/20 21:20 Dose: 15 mg Oxycodone HCl (Roxicodone -) 5 mg PO Q6H PRN PRN Reason: PAIN LEVEL 6-10 Polyethylene Glycol (Miralax (For Daily Use) -) 17 gm PO BID [facility] Last Admin: 01/19/20 21:19 Dose: Not Given Senna (Senna -) 1 tab PO [facility] Last Admin: 01/19/20 21:20 Dose: 1 tab Sertraline HCl (Zoloft -) 200 mg PO 0700 [facility] Last Admin: 01/20/20 06:29 Dose: 200 mg Silver Sulfadiazine (Silvadene -) 1 applic TP 0700 [facility] Last Admin: 01/20/20 06:36 Dose: 1 applic Warfarin Sodium (Coumadin -) 5 mg PO DAILY@1800 [facility] Last Admin: 01/19/20 19:44 Dose: 5 mg - Objective Vital Signs: Vital Signs Temperature 98.4 F 01/20/20 07:31 Pulse Rate 75 01/20/20 07:31 Respiratory Rate 20 01/20/20 07:31 Blood Pressure 124/68 01/20/20 07:31 O2 Sat by Pulse Oximetry (%) 100 01/19/20 21:00 Constitutional: Yes: Well Nourished Cardiovascular: Yes: WNL Respiratory: Yes: WNL Gastrointestinal: Yes: WNL Labs: CBC, BMP 01/19/20 08:08 01/19/20 08:08 INR, PTT INR 1.18 (0.82-1.09) 01/17/20 13:30 Assessment/Plan Pain controlled, no adverse anesthetic effects, dept of anesthesia will sign off care at this time
[2020-01-20 09:05] LABS: BASO % 0.2 % (0-2.0); EOS % 1.2 % (0-4.5); HEMATOCRIT 34.9 % (35.4-49); HEMOGLOBIN 11.8 GM/dL (11.7-16.9); LYMPH % 4.5 % (8-40); MCH 31.7 pg (25.7-33.7); MCHC 33.9 g/dl (32.0-35.9); MEAN CELL VOLUME 93.7 fl (80-96); MEAN PLT VOLUME 7.6 fl (7.5-11.1); MONO % 11.9 % (3.8-10.2); NEUT % 82.2 % (42.8-82.8); PLATELET COUNT 154 K/MM3 (134-434); RBC 3.72 M/mm3 (4.00-5.60); RDW 14.8 % (11.9-15.9); WHITE BLOOD COUNT 9.1 K/mm3 (4.0-10.0)
[2020-01-20 09:18] LABS: BLOOD UREA NITROGEN 20.6 mg/dL (7-18); CALCIUM 8.7 mg/dL (8.5-10.1); CREATININE 1.4 mg/dL (0.55-1.3); POTASSIUM 4.4 mmol/L (3.5-5.1)
[2020-01-20 09:25] LABS: INR 1.15 (0.83-1.09); PROTHROMBIN TIME (PATIENT) 13.6 SEC (9.7-13.0)
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
[2020-01-20] MEDS ORDERED: POLYETHYLENE GLYCOL 3350 119 GM BTL PO SCH (10:00)
[2020-01-20] MEDS: POLYETHYLENE GLYCOL 3350 119 GM BTL PO SCH ×2 (10:52→23:00)
[2020-01-20] MEDS: ACETAMINOPHEN 325 MG TABLET (FP) PO PRN (10:52)
[2020-01-20] MEDS: ALPRAZolam 0.25 MG TABLET PO PRN (10:52)
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
--- NOTE | 2020-01-20 16:12 | PN ---
Progress Note (short form) - Note Progress Note: s: no chest pain, palps, dizziness, dyspnea Current Medications Acetaminophen (Tylenol -) 650 mg PO Q4H PRN PRN Reason: PAIN LEVEL 4 - 6 Last Admin: 01/20/20 10:52 Dose: 650 mg Acetaminophen (Tylenol -) 325 mg PO Q6H PRN PRN Reason: PAIN SCALE 6 - 10 Alprazolam (Xanax -) 0.25 mg PO 0700,1900 PRN PRN Reason: ANXIETY Last Admin: 01/20/20 10:52 Dose: 0.25 mg Docusate Sodium (Colace -) 100 mg PO [facility] Last Admin: 01/19/20 21:20 Dose: 100 mg Hydroxychloroquine Sulfate (Plaquenil -) 200 mg PO 0700,1900 [facility] Last Admin: 01/20/20 06:30 Dose: 200 mg Losartan Potassium (Cozaar -) 25 mg PO 0700 [facility] Last Admin: 01/20/20 06:29 Dose: 25 mg Mirtazapine (Remeron -) 15 mg PO [facility] Last Admin: 01/19/20 21:20 Dose: 15 mg Oxycodone HCl (Roxicodone -) 5 mg PO Q6H PRN PRN Reason: PAIN LEVEL 6-10 Polyethylene Glycol (Miralax (For Daily Use) -) 17 gm PO BID [facility] Last Admin: 01/20/20 10:52 Dose: 17 grams Senna (Senna -) 1 tab PO [facility] Last Admin: 01/19/20 21:20 Dose: 1 tab Sertraline HCl (Zoloft -) 200 mg PO 0700 [facility] Last Admin: 01/20/20 06:29 Dose: 200 mg Silver Sulfadiazine (Silvadene -) 1 applic TP 0700 [facility] Last Admin: 01/20/20 06:36 Dose: 1 applic Warfarin Sodium (Coumadin -) 5 mg PO DAILY@1800 [facility] Last Admin: 01/19/20 19:44 Dose: 5 mg Vital Signs Period Temp Pulse Resp BP Sys/Saunders Pulse Ox Last 24 Hr 97.4 F-100 F 63-77 18-20 105-130/56-75 100 nad no jvd rrr s1s2 no mrg cta bl nl eff aao3 no le e/c/c abd nt nd pos bs no jaundice diaphoresis pos dp pt no carotid bruits ecg: sr nl intervals no ischemic changes cxr: clear lungs a/p: 79 m hx afib (s/p ablation), htn, hld, here s/p fall. fall, hip fracture: -mechanical fall, no suggestion of cardiac etiology -s/p hip surgery, manage per ortho afib s/p ablation: -in sr here -cont coumadin, goal INR 2-3 htn: -cont home arb hld: -cont home statin
--- NOTE | 2020-01-20 16:13 | PN ---
Progress Note, Physician History of Present Illness: Pt seen and examined at bedside. He is awake and alert. He denies shortness of breath. - Current Medication List Current Medications: Active Medications Acetaminophen (Tylenol -) 650 mg PO Q4H PRN PRN Reason: PAIN LEVEL 4 - 6 Last Admin: 01/20/20 10:52 Dose: 650 mg Acetaminophen (Tylenol -) 325 mg PO Q6H PRN PRN Reason: PAIN SCALE 6 - 10 Alprazolam (Xanax -) 0.25 mg PO 0700,1900 PRN PRN Reason: ANXIETY Last Admin: 01/20/20 10:52 Dose: 0.25 mg Docusate Sodium (Colace -) 100 mg PO [facility] Last Admin: 01/19/20 21:20 Dose: 100 mg Hydroxychloroquine Sulfate (Plaquenil -) 200 mg PO 0700,1900 [facility] Last Admin: 01/20/20 06:30 Dose: 200 mg Losartan Potassium (Cozaar -) 25 mg PO 0700 [facility] Last Admin: 01/20/20 06:29 Dose: 25 mg Mirtazapine (Remeron -) 15 mg PO [facility] Last Admin: 01/19/20 21:20 Dose: 15 mg Oxycodone HCl (Roxicodone -) 5 mg PO Q6H PRN PRN Reason: PAIN LEVEL 6-10 Polyethylene Glycol (Miralax (For Daily Use) -) 17 gm PO BID [facility] Last Admin: 01/20/20 10:52 Dose: 17 grams Senna (Senna -) 1 tab PO [facility] Last Admin: 01/19/20 21:20 Dose: 1 tab Sertraline HCl (Zoloft -) 200 mg PO 0700 [facility] Last Admin: 01/20/20 06:29 Dose: 200 mg Silver Sulfadiazine (Silvadene -) 1 applic TP 0700 [facility] Last Admin: 01/20/20 06:36 Dose: 1 applic Warfarin Sodium (Coumadin -) 5 mg PO DAILY@1800 [facility] Last Admin: 01/19/20 19:44 Dose: 5 mg - Objective Vital Signs: Vital Signs Temperature 97.4 F L 01/20/20 14:46 Pulse Rate 73 01/20/20 14:46 Respiratory Rate 18 01/20/20 14:46 Blood Pressure 105/56 L 02/24/20 14:46 O2 Sat by Pulse Oximetry (%) 100 01/19/20 21:00 Constitutional: Yes: Calm Eyes: Yes: Conjunctiva Clear HENT: Yes: Atraumatic Neck: Yes: Supple Cardiovascular: Yes: S1, S2 Respiratory: Yes: CTA Bilaterally Gastrointestinal: Yes: Soft Genitourinary: Yes: WNL Musculoskeletal: Yes: Other (hip pain) Edema: No Neurological: Yes: Oriented Psychiatric: Yes: Oriented Labs: CBC, BMP 01/20/20 08:15 01/20/20 08:15 INR, PTT INR 1.15 (0.83-1.09) H 01/20/20 08:15 Problem List - Problems (1) Femoral neck fracture Code(s): S72.009A - FRACTURE OF UNSP PART OF NECK OF UNSP FEMUR, INIT Qualifiers: Laterality: right Assessment/Plan Current Medications Generic Name Dose Route Start Last Admin Trade Name Freq PRN Reason Stop Dose Admin Acetaminophen 650 mg 01/19/20 10:01 01/20/20 10:52 Tylenol - PO 650 mg Q4H PRN Administration PAIN LEVEL 4 - 6 Acetaminophen 325 mg 01/19/20 10:01 Tylenol - PO Q6H PRN PAIN SCALE 6 - 10 Alprazolam 0.25 mg 01/19/20 10:01 01/20/20 10:52 Xanax - PO 0.25 mg 0700,1900 PRN Administration ANXIETY Docusate Sodium 100 mg 01/19/20 22:00 01/19/20 21:20 Colace - PO 100 mg HS [facility] Administration Hydroxychloroquine Sulfate 200 mg 01/19/20 19:00 01/20/20 06:30 Plaquenil - PO 200 mg 0700,1900 [facility] Administration Losartan Potassium 25 mg 01/20/20 07:00 01/20/20 06:29 Cozaar - PO 25 mg 0700 [facility] Administration Mirtazapine 15 mg 01/19/20 22:00 01/19/20 21:20 Remeron - PO 15 mg HS [facility] Administration Oxycodone HCl 5 mg 01/19/20 10:01 Roxicodone - PO Q6H PRN PAIN LEVEL 6-10 Polyethylene Glycol 17 gm 01/19/20 22:00 01/20/20 10:52 Miralax (For Daily Use) - PO 17 grams BID [facility] Administration Senna 1 tab 01/19/20 22:00 01/19/20 21:20 Senna - PO 1 tab HS [facility] Administration Sertraline HCl 200 mg 01/20/20 07:00 01/20/20 06:29 Zoloft - PO 200 mg 0700 [facility] Administration Silver Sulfadiazine 1 applic 01/20/20 07:00 01/20/20 06:36 Silvadene - TP 1 applic 0700 [facility] Administration Warfarin Sodium 5 mg 01/19/20 20:00 01/19/20 19:44 Coumadin - PO 5 mg DAILY@1800 [facility] Administration Impression 1. CKD vs MEENU with unclear baseline 2. renal cyst per pt 3. a-fib 4. hip fracture 5. anxiety 6. htn 7. transaminitis Plan - likely ckd - ua neg for blood or protein - ast and alt improved - pt appears calmer - avoid nsaids
[2020-01-20] MEDS: WARFARIN NA 5 MG TABLET (UD) PO SCH (18:08)
[2020-01-20] MEDS: DOCUSATE SODIUM 100 MG CAPSULE (FP) PO SCH (22:59)
[2020-01-20] MEDS: SENNOSIDES 8.6MG TABLET (FP) PO SCH (22:59)
[2020-01-20] MEDS: MIRTAZAPINE 15 MG TABLET (FP) PO SCH (22:59)
[2020-01-21] MEDS: LOSARTAN POTASSIUM 25 MG TABLET PO SCH (06:05)
[2020-01-21] MEDS: SERTRALINE HCL 50 MG TABLET (FP) PO SCH (06:05)
[2020-01-21] MEDS: HYDROXYCHLOROQUINE SO4 200 MG TABLET (FP) PO SCH ×2 (06:06→18:15)
[2020-01-21] MEDS: SILVER SULFADIAZINE 1% TOP CREAM 50 GM JAR TP SCH (06:08)
[2020-01-21 07:48] LABS: BASO % 0.3 % (0-2.0); EOS % 1.9 % (0-4.5); HEMATOCRIT 33.3 % (35.4-49); HEMOGLOBIN 11.2 GM/dL (11.7-16.9); LYMPH % 6.9 % (8-40); MCH 31.6 pg (25.7-33.7); MCHC 33.6 g/dl (32.0-35.9); MEAN CELL VOLUME 94.1 fl (80-96); MONO % 11.8 % (3.8-10.2); NEUT % 79.1 % (42.8-82.8); PLATELET COUNT 144 K/MM3 (134-434); RBC 3.54 M/mm3 (4.00-5.60); RDW 14.9 % (11.9-15.9); WHITE BLOOD COUNT 7.3 K/mm3 (4.0-10.0)
[2020-01-21 08:12] LABS: ALBUMIN 2.8 g/dl (3.4-5.0); BILIRUBIN,TOTAL 0.6 mg/dL (0.2-1); BLOOD UREA NITROGEN 30.8 mg/dL (7-18); CALCIUM 8.5 mg/dL (8.5-10.1); CREATININE 1.6 mg/dL (0.55-1.3); POTASSIUM 4.5 mmol/L (3.5-5.1)
[2020-01-21 08:13] LABS: INR 1.21 (0.83-1.09); PROTHROMBIN TIME (PATIENT) 14.3 SEC (9.7-13.0)
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
[2020-01-21] MEDS: POLYETHYLENE GLYCOL 3350 119 GM BTL PO SCH (10:55)
[2020-01-21] MEDS: ALPRAZolam 0.25 MG TABLET PO PRN (13:02)
[2020-01-21 14:07] VITALS: BP 125/57; PULSE 75; TEMP 98.6
--- NOTE | 2020-01-21 14:10 | PN ---
Progress Note, Physician Chief Complaint: at bedside Denies CP, SOB, palps - Current Medication List Current Medications: Active Medications Acetaminophen (Tylenol -) 650 mg PO Q4H PRN PRN Reason: PAIN LEVEL 4 - 6 Last Admin: 01/20/20 10:52 Dose: 650 mg Acetaminophen (Tylenol -) 325 mg PO Q6H PRN PRN Reason: PAIN SCALE 6 - 10 Alprazolam (Xanax -) 0.25 mg PO 0700,1900 PRN PRN Reason: ANXIETY Last Admin: 01/21/20 13:02 Dose: 0.25 mg Docusate Sodium (Colace -) 100 mg PO [facility] Last Admin: 01/20/20 22:59 Dose: 100 mg Hydroxychloroquine Sulfate (Plaquenil -) 200 mg PO 0700,1900 [facility] Last Admin: 01/21/20 06:06 Dose: 200 mg Losartan Potassium (Cozaar -) 25 mg PO 0700 [facility] Last Admin: 01/21/20 06:05 Dose: 25 mg Mirtazapine (Remeron -) 15 mg PO [facility] Last Admin: 01/20/20 22:59 Dose: 15 mg Oxycodone HCl (Roxicodone -) 5 mg PO Q6H PRN PRN Reason: PAIN LEVEL 6-10 Polyethylene Glycol (Miralax (For Daily Use) -) 17 gm PO BID [facility] Last Admin: 01/21/20 10:55 Dose: 17 grams Senna (Senna -) 1 tab PO [facility] Last Admin: 01/20/20 22:59 Dose: 1 tab Sertraline HCl (Zoloft -) 200 mg PO 0700 [facility] Last Admin: 01/21/20 06:05 Dose: 200 mg Silver Sulfadiazine (Silvadene -) 1 applic TP 0700 [facility] Last Admin: 01/21/20 06:08 Dose: 1 applic Warfarin Sodium (Coumadin -) 5 mg PO DAILY@1800 [facility] Last Admin: 01/20/20 18:08 Dose: 5 mg - Objective Vital Signs: Vital Signs Temperature 98.6 F 01/21/20 14:05 Pulse Rate 75 01/21/20 14:05 Respiratory Rate 18 01/21/20 14:05 Blood Pressure 125/57 L 01/21/20 14:05 O2 Sat by Pulse Oximetry (%) 96 01/20/20 21:00 Constitutional: Yes: No Distress, Calm Cardiovascular: Yes: Regular Rate and Rhythm Respiratory: Yes: CTA Bilaterally Gastrointestinal: Yes: Soft Edema: No Neurological: Yes: Alert, Oriented Labs: CBC, BMP 01/21/20 07:18 01/21/20 07:18 INR, PTT INR 1.21 (0.83-1.09) H 01/21/20 07:18 Assessment/Plan a/p: 79 m hx afib (s/p ablation), htn, hld, here s/p fall. fall, hip fracture: -mechanical fall, no suggestion of cardiac etiology -s/p hip surgery, manage per ortho afib s/p ablation: -in sr here -cont coumadin, goal INR 2-3 htn: -cont home arb hld: -cont home statin
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
--- NOTE | 2020-01-21 14:35 | PN ---
Progress Note (short form) - Note Progress Note: Ortho Pt seen and examined s/p right hip cannulated screws pod #2 Selected Entries 01/21/20 14:05 Temperature 98.6 F Pulse Rate 75 Respiratory 18 Rate Blood Pressure 125/57 L Laboratory Tests 01/21/20 07:18 WBC 7.3 Hgb 11.2 L Hct 33.3 L Plt Count 144 dressing c/d/i, calf soft, nt nvi a/p PT dvt ppx pain control d/c planning
[2020-01-21] MEDS: WARFARIN NA 5 MG TABLET (UD) PO SCH (18:12)
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
== END 2020-01-21 19:58 | DRG 481 ==
LOC: FER 12:00 → FM/S 14:35 → J6S 01-18 18:15
PROVIDERS: ADMIT Internal Medicine; ATTEND Internal Medicine
PROC: 0QS604Z Reposition Right Upper Femur with Internal Fixation Device, Open Approach (ICD-10-PCS; principal; 2020-01-19 09:00)
DX: S72.001A Fracture of unspecified part of neck of right femur, initial encounter for closed fracture (principal); N17.9 Acute kidney failure, unspecified; T30.0 Burn of unspecified body region, unspecified degree; I12.9 Hypertensive chronic kidney disease with stage 1 through stage 4 chronic kidney disease, or unspecified chronic kidney disease; N18.3 Chronic kidney disease, stage 3 (moderate); E78.5 Hyperlipidemia, unspecified; M06.9 Rheumatoid arthritis, unspecified; N28.1 Cyst of kidney, acquired; K59.09 Other constipation; F41.8 Other specified anxiety disorders; R25.1 Tremor, unspecified; W18.30XA Fall on same level, unspecified, initial encounter; Y92.098 Other place in other non-institutional residence as the place of occurrence of the external cause; Z79.01 Long term (current) use of anticoagulants
CPT/HCPCS: 36415; 71045-TC-FY; 73523-TC-FY; 76000-TC-FY; 80048; 80053; 80061; 80074; 80307; 81003; 82607; 83036; 84443; 85025; 85610; 85730; 86593; 86850; 86900; 86901; 87086; 93005; 94760; 97116-GP; 97161-GP; 99285-25; J1644; J7030